=== PATIENT | male | born 1990 | race Caucasian/White ===

== ENCOUNTER 2020-08-01 13:08 | Emergency (ER) | payer MEDICAID, OTHER ==
[~2020-08-01] VITALS: Ht 182.9 cm; Wt 67.9 kg
--- NOTE | 2020-08-01 13:30 | NUR ---
URINE COLLECTED/ORDERED PER PROTOCOL AND SENT TO LAB. PT PLACED IN GOWN, CALL LIGHT WITHIN REACH, WARM BLANKET PROVIDED.
[2020-08-01 13:40] LABS: MICROSCOPIC AUTO
[2020-08-01 14:13] LABS: BASOPHILS % (AUTO) 1 % (0-1); EOSINOPHILS % (AUTO) 1 % (1-7); LYMPHOCYTES % (AUTO) 31 % (22-44); MEAN CORPUSCULAR HEMOGLOBIN 30.1 pg (27.5-34.5); MEAN PLATELET VOLUME 9.3 fL (7.4-10.4); MONOCYTES % (AUTO) 8 % (2-9); NEUTROPHILS % (AUTO) 60 % (42-75); PLATELET COUNT 192 x10^3/uL (130-400); RED BLOOD COUNT 4.99 x10^6/uL (4.38-5.82); RED CELL DISTRIBUTION WIDTH 12.6 % (9.4-14.8)
[2020-08-01 14:16] LABS: MD NO
[2020-08-01 14:19] LABS: ALANINE AMINOTRANSFERASE 15 U/L (12-78); ALBUMIN 4.1 g/dL (3.4-5.0); CHLORIDE 109 mmol/L (98-107); CREATININE 0.95 mg/dL (0.7-1.3)
[2020-08-01 14:21] LABS: ALKALINE PHOSPHATASE 68 U/L (45-117); BILIRUBIN,TOTAL 0.8 mg/dL (0.2-1.0); TOTAL PROTEIN 6.8 g/dL (6.4-8.2)
[2020-08-01 14:32] LABS: ANION GAP 6 mmol/L (5-15)
--- NOTE | 2020-08-01 14:53 | NUR ---
REPORT TO [facility], TRANSFER OF CARE AT THIS TIME.
--- NOTE | 2020-08-01 15:12 | NUR ---
assumed care of patient. patient at CT
[2020-08-01 15:27] VITALS: BP 102/50
== END 2020-08-01 16:03 | disposition home or self-care (01) ==
LOC: ED 14:24
DX: N30.01 Acute cystitis with hematuria (principal); F17.210 Nicotine dependence, cigarettes, uncomplicated
CPT/HCPCS: 36415; 74176; 80053; 81001; 85025; 87086; 99284; 99406

== ENCOUNTER 2020-08-31 12:27 | Emergency (ER) | payer OTHER ==
[~2020-08-31] VITALS: Ht 182.9 cm; Wt 62.3 kg
--- NOTE | 2020-08-31 12:53 | NUR ---
First contact with pt. Pt reports he was diagnosed with R sided kidney stones several weeks ago, reports last night pain began worsening. Pt placed in gown, able to position self for comfort in bed. Pt declines warm blanket offered. Continuous oxygen and BP monitors applied, all safety measures observed.
[2020-08-31] MEDS ORDERED: KETOROLAC 30 MG/1 ML IVPush ONE (13:00)
[2020-08-31] MEDS ORDERED: ONDANSETRON 2MG/ML, 2ML IVPush ONE (13:00)
[2020-08-31] MEDS ORDERED: SODIUM CHLORIDE FLUSH 10ML SYR IVF ONE (13:00)
[2020-08-31] MEDS ORDERED: MORPHINE SULFATE 4 MG/ML, 1ML ONE ×2 (13:02→16:01)
[2020-08-31] MEDS ORDERED: ONDANSETRON 2MG/ML, 2ML ONE (13:02)
[2020-08-31] MEDS ORDERED: KETOROLAC 30 MG/1 ML ONE (13:02)
--- NOTE | 2020-08-31 13:53 | NUR ---
This RN and one other RN have been unsuccessful at inserting IV. Third RN at bedside attempting to insert PIV per order.
[2020-08-31] MEDS: MORPHINE SULFATE 4 MG/ML, 1ML IVPush PRN ×2 (13:58→16:05)
--- NOTE | 2020-08-31 14:01 | NUR ---
PIV inserted and pt medicated per MAY. Pt reports relief of pain after medications. US in progress.
[2020-08-31 15:08] LABS: BASOPHILS % (AUTO) 0 % (0-1); EOSINOPHILS % (AUTO) 0 % (1-7); LYMPHOCYTES % (AUTO) 6 % (22-44); MEAN CORPUSCULAR HEMOGLOBIN 29.5 pg (27.5-34.5); MEAN CORPUSCULAR HGB CONC 33.3 g/dL (33.2-36.2); MEAN PLATELET VOLUME 9.7 fL (7.4-10.4); MONOCYTES % (AUTO) 4 % (2-9); NEUTROPHILS % (AUTO) 90 % (42-75); PLATELET COUNT 171 x10^3/uL (130-400); RED BLOOD COUNT 5.11 x10^6/uL (4.38-5.82); RED CELL DISTRIBUTION WIDTH 13.3 % (9.4-14.8)
[2020-08-31 15:14] LABS: ALANINE AMINOTRANSFERASE 18 U/L (12-78); ALBUMIN 4.3 g/dL (3.4-5.0); ANION GAP 8 mmol/L (5-15); CALCIUM 9.2 mg/dL (8.5-10.1); CHLORIDE 110 mmol/L (98-107); CREATININE 0.99 mg/dL (0.7-1.3)
[2020-08-31 15:16] LABS: ALKALINE PHOSPHATASE 67 U/L (45-117); TOTAL PROTEIN 7.1 g/dL (6.4-8.2)
--- NOTE | 2020-08-31 15:49 | NUR ---
Pt resting in bed, POLO. Pt reports he is unable to provide a urine sample at this time.
[2020-08-31 16:28] LABS: MICROSCOPIC INDICATED
--- NOTE | 2020-08-31 16:49 | NUR ---
Urine sample collected and sent to lab. Pt medicated per MAY for 8/10 R flank pain. After medications pt reports relief of pain.
[2020-08-31 17:52] VITALS: BP 96/53
== END 2020-08-31 17:55 | disposition home or self-care (01) ==
LOC: ED 13:00
DX: N13.2 Hydronephrosis with renal and ureteral calculous obstruction (principal)
CPT/HCPCS: 36415; 74018; 76770; 80053; 81001; 85025; 87086; 96374; 96375; 96376; 99285; J1885; J2270; J2405

== ENCOUNTER → 2020-10-09 | Outpatient (CLI) | payer OTHER ==
[2020-10-09 09:02] LABS: MICROSCOPIC AUTO
== END | disposition home or self-care (01) ==
LOC: STAR 08:03
PROVIDERS: ATTEND Urology
DX: Z01.812 Encounter for preprocedural laboratory examination (principal); Z20.822 Contact with and (suspected) exposure to COVID-19; N20.0 Calculus of kidney
CPT/HCPCS: 81001; 87086; U0003; U0005

== ENCOUNTER 2020-10-15 11:30 | Day surgery (SDC) | payer OTHER ==
[~2020-10-15] VITALS: Ht 182.9 cm; Wt 58.8 kg
[2020-10-15 11:59] VITALS: BP 96/63
[2020-10-15 12:03] VITALS: BP 96/63
[2020-10-15] MEDS ORDERED: LACTATED RINGERS 1,000 ML IV SCH (12:30)
[2020-10-15] MEDS ORDERED: CHLORHEXIDINE 15 ML UDC PO ONE (12:30)
[2020-10-15] MEDS ORDERED: NEOSTIGMINE 1 MG/ML, 10ML ONE (12:48)
[2020-10-15] MEDS ORDERED: ROCURONIUM 10 MG/ML,10ML ONE (12:48)
[2020-10-15] MEDS ORDERED: DEXAMETHASONE 4 MG/ML, 1ML ONE (12:48)
[2020-10-15] MEDS ORDERED: KETOROLAC 30 MG/1 ML ONE (12:48)
[2020-10-15] MEDS ORDERED: GLYCOPYRROLATE 0.2MG/1ML, 5ML ONE (12:48)
[2020-10-15] MEDS ORDERED: PROPOFOL 10 MG/ML, 20ML ONE (12:48)
[2020-10-15] MEDS ORDERED: CEFAZOLIN 1,000 MG ONE (12:48)
[2020-10-15] MEDS ORDERED: FENTANYL PF 100 MCG/2ML ONE ×2 (12:56→14:01)
[2020-10-15] MEDS ORDERED: MIDAZOLAM 1 MG/ML, 2ML ONE (12:56)
[2020-10-15] MEDS ORDERED: OMNIPAQUE 350 MG/ML, 50 ML BOTTLE ONE (13:02)
[2020-10-15] MEDS ORDERED: DIAZEPAM 5 MG/ML, 2ML IVPush PRN (14:00)
[2020-10-15] MEDS ORDERED: PROMETHAZINE 25 MG/ML, 1ML IV PRN (14:00)
[2020-10-15] MEDS ORDERED: hydrALAzine 20 MG/ML, 1ML IV PRN (14:00)
[2020-10-15] MEDS ORDERED: LABETALOL 5MG/ML, 20ML IV PRN (14:00)
[2020-10-15] MEDS ORDERED: HYDROmorphone 2 MG/ML, 1ML IVPush PRN (14:00)
[2020-10-15] MEDS ORDERED: OXYcodone/APAP 5/325MG TABLET PO PRN (14:00)
[2020-10-15] MEDS ORDERED: MEPERIDINE/PF 25MG/0.5ML IVPush PRN (14:00)
[2020-10-15] MEDS ORDERED: KETOROLAC 30 MG/1 ML IV PRN (14:00)
[2020-10-15] MEDS ORDERED: ACETAMINOPHEN 325 MG TABLET PO PRN (14:00)
[2020-10-15] MEDS ORDERED: ALBUTEROL SULFATE 2.5 MG/3 ML NPPB PRN (14:00)
[2020-10-15] MEDS ORDERED: ONDANSETRON 2MG/ML, 2ML IV PRN (14:00)
[2020-10-15] MEDS ORDERED: CEFAZOLIN PMX 1GM/50ML 50 ML IVPB SCH (14:00)
[2020-10-15] MEDS: FENTANYL PF 100 MCG/2ML IV PRN ×3 (14:03→14:20)
[2020-10-15] MEDS ORDERED: ACETAMINOPHEN 650 MG/20.3 ML UDC ONE (14:12)
[2020-10-15] MEDS ORDERED: OXYcodone 5 MG/5 ML ORAL.SOL UDC ONE (14:13)
[2020-10-15] MEDS: OXYcodone 5 MG/5 ML ORAL.SOL UDC PO PRN ×2 (14:16→14:55)
== END 2020-10-15 15:59 | disposition home or self-care (01) ==
LOC: OUT 11:30
PROVIDERS: ATTEND Urology
DX: N20.2 Calculus of kidney with calculus of ureter (principal)
CPT/HCPCS: 52356; 74420; 82360; 88300; C1769; C2617; J0690; J1100; J1885; J2250; J2704; J2710; J3010; J7120; Q9967